=== PATIENT | male | born 1995 | race Caucasian/White ===

== ENCOUNTER 2021-03-31 13:39 | Emergency (ER) | payer OTHER ==
[~2021-03-31] VITALS: Ht 167.6 cm; Wt 97.3 kg
[2021-03-31] MEDS ORDERED: FEXO60TA71 PO (14:20)
[2021-03-31] MEDS ORDERED: MONI4CRE3 PV (14:20)
[2021-03-31] MEDS ORDERED: AUGMENTIN 875 MG TAB PO ONE (17:55)
[2021-03-31] MEDS ORDERED: AMOX875T2 PO (17:59)
[2021-03-31 18:14] VITALS: BP 135/71
== END 2021-03-31 18:15 | disposition home or self-care (01) ==
LOC: M ED 13:39
DX: J32.9 Chronic sinusitis, unspecified (principal); H66.92 Otitis media, unspecified, left ear

== ENCOUNTER 2021-04-13 23:10 | Emergency (ER) | payer OTHER ==
[~2021-04-13] VITALS: Ht 165.1 cm; Wt 95.5 kg
[~2021-04-13 23:10] MED LIST: AMOX875T2 PO; FEXO60TA98 PO; MONI4CRE3 PV
[2021-04-14] MEDS ORDERED: predniSONE 20 MG TAB PO ONE (00:50)
[2021-04-14] MEDS ORDERED: hydrOXYzine 25 MG TAB PO ONE (00:50)
[2021-04-14] MEDS ORDERED: HYDR-3363 PO (00:56)
[2021-04-14] MEDS ORDERED: PRED20TA PO (00:56)
[2021-04-14 01:22] VITALS: BP 124/81
== END 2021-04-14 01:31 | disposition home or self-care (01) ==
LOC: M ED 23:10
DX: L50.9 Urticaria, unspecified (principal)
CPT/HCPCS: 89321; 99283; J7512

== ENCOUNTER → 2021-04-14 | Outpatient (REF) | payer OTHER ==
[~2021-04-14] MED LIST changes: +HYDR-3363 PO; +PRED20TA PO
[2021-04-14 11:19] LABS: SEMEN APPEARANCE OPAQUE (OPAQUE); SEMEN VISCOSITY LIQUID (LIQUID); SEMEN VOLUME 1.2 ml (2.0-5.0); WBC CONCENTRATION <=1 M/ml (<=1 M/ml)
== END ==
LOC: M SMT 11:07
PROVIDERS: ATTEND Urology
DX: Z30.8 Encounter for other contraceptive management (principal)

== ENCOUNTER → 2022-01-16 | Outpatient (CLI) | payer OTHER ==
[2022-01-16 11:59] LABS: BASO % 0.3 % (0.0-1.0); EOS # 0.1 10^3/uL (0.0-0.5); EOS % 0.6 % (0.0-3.0); HEMATOCRIT 47.3 % (42.0-52.0); HEMOGLOBIN 15.2 g/dl (13.5-17.5); LYMPH # 1.2 10^3/uL (1.5-5.0); LYMPH % 11.7 % (24.0-44.0); MEAN CORPUSCULAR HEMOGLOBIN 26.8 pg (27.0-33.0); MEAN CORPUSCULAR HGB CONC 32.1 g/dl (32.0-36.5); MEAN CORPUSCULAR VOLUME 83.4 fl (80.0-96.0); MONO # 1.1 10^3/uL (0.0-0.8); MONO % 10.9 % (2.0-8.0); NEUTROPHILS # 7.5 10^3/uL (1.5-8.5); PLATELET COUNT, AUTOMATED 261 10^3/uL (150-450); RED BLOOD COUNT 5.67 10^6/uL (4.30-6.10); WHITE BLOOD COUNT 9.8 10^3/uL (4.0-10.0)
[2022-01-16 13:05] LABS: C REACTIVE PROTEIN QUANTITATIV 1.9 MG/DL (<1.0)
[2022-01-16 13:10] LABS: IMMUNOGLOBULIN E 57.8 IU/ML (0-378)
[2022-01-19 20:07] LABS: ASPERGILLUS FLAVUS ABY Negative (Neg:<1:1); ASPERGILLUS FUMIGATUS ABY Negative (Neg:<1:1); ASPERGILLUS NIGER ABY Negative (Neg:<1:1)
== END ==
LOC: M LAB 11:27
PROVIDERS: ATTEND Internal Medicine Critical Care Medicine
DX: J45.40 Moderate persistent asthma, uncomplicated (principal)

== ENCOUNTER 2022-07-11 10:30 | Day surgery (SDC) | payer OTHER ==
[~2022-07-11] VITALS: Ht 165.1 cm; Wt 90.7 kg
[~2022-07-11 10:30] MED LIST changes: +ALBUTEROL SULFATE 2.5MG/0.5ML INH NEB SOLN INH ONE; +BREO1INH3 INH; +FEXO-116 PO; +FLUT1BLS17 NARES; +LIDOCAINE PRES-FREE 2% 10ML AMP INH ONE; +MONT10TA97 PO
[2022-07-11] MEDS ORDERED: MIDAZOLAM INJ 2MG/2ML VIAL As Ordered ONE ×2 (10:34→11:27)
[2022-07-11] MEDS ORDERED: ONDANSETRON 4MG 2ML VIAL As Ordered ONE (10:34)
[2022-07-11] MEDS ORDERED: LIDOCAINE 2% 100MG/5ML SDV (FOR ANES.) As Ordered ONE (10:34)
[2022-07-11] MEDS ORDERED: fentaNYL 100 MCG/2 ML INJECTION As Ordered ONE (10:34)
[2022-07-11] MEDS ORDERED: propofoL 200 MG/20 ML VIAL As Ordered ONE (10:34)
[2022-07-11] MEDS ORDERED: ACETAMINOPHEN 1000MG 100ML IV BAG As Ordered ONE (10:36)
[2022-07-11] MEDS ORDERED: EPINEPHrine 1MG/10ML SYRINGE 1.5IN As Ordered ONE (10:53)
[2022-07-11] MEDS ORDERED: CETACAINE SPRAY 5GM As Ordered ONE (10:53)
[2022-07-11] MEDS ORDERED: THROMBIN 5,000 UNITS VIAL As Ordered ONE (10:53)
[2022-07-11] MEDS ORDERED: LIDOCAINE 1% SDV 30ML VIAL As Ordered ONE (11:35)
[2022-07-11] MEDS ORDERED: METOCLOPRAMIDE INJ 10MG/2ML VIAL As Ordered ONE (11:44)
[2022-07-11] MEDS ORDERED: HYDROMORPHONE HCL 0.5 MG/ 0.5 ML SYRINGE IV PRN (12:05)
[2022-07-11] MEDS ORDERED: ONDANSETRON 4MG 2ML VIAL IV PRN (12:05)
[2022-07-11] MEDS ORDERED: LR 1,000 ML IV SCH (12:05)
[2022-07-11] MEDS ORDERED: oxyCODONE 5MG TAB PO PRN (12:05)
[2022-07-11] MEDS ORDERED: fentaNYL 100 MCG/2 ML INJECTION IV PRN (12:05)
[2022-07-11 13:27] VITALS: BP 129/82; TEMP 97.3; O2SAT 96
== END 2022-07-11 13:41 | disposition home or self-care (01) ==
LOC: M SDC 10:30
PROVIDERS: ATTEND Internal Medicine Critical Care Medicine
DX: R05.3 Chronic cough (principal); J45.909 Unspecified asthma, uncomplicated; F41.9 Anxiety disorder, unspecified; F32.A Depression, unspecified; R06.83 Snoring; Z88.0 Allergy status to penicillin; Z79.899 Other long term (current) drug therapy; Z79.51 Long term (current) use of inhaled steroids
CPT/HCPCS: 31624; 87070; 87077; 87102; 87116; 87185; 87186; 87205; 87206; 88108; 88313; J0131; J1100; J2250; J2405; J2765; J3010

== ENCOUNTER → 2022-07-13 | Outpatient (CLI) | payer OTHER ==
[~2022-07-13] MED LIST changes: -ALBUTEROL SULFATE 2.5MG/0.5ML INH NEB SOLN INH ONE; -LIDOCAINE PRES-FREE 2% 10ML AMP INH ONE
== END ==
LOC: M RAD 08:50
PROVIDERS: ATTEND Internal Medicine Critical Care Medicine
DX: R91.8 Other nonspecific abnormal finding of lung field (principal)

== ENCOUNTER 2022-09-21 14:42 | Emergency (ER) | payer OTHER ==
[~2022-09-21] VITALS: Ht 165.1 cm; Wt 92.0 kg
[2022-09-21 20:34] VITALS: BP 146/82; TEMP 97.7; O2SAT 99
[2022-09-22 12:45] LABS: GC DNA AMPLIFICATION NEGATIVE (NEGATIVE)
== END 2022-09-21 20:36 | disposition home or self-care (01) ==
LOC: M ED 14:42
DX: N50.812 Left testicular pain (principal); N50.3 Cyst of epididymis; Z88.0 Allergy status to penicillin; Z79.899 Other long term (current) drug therapy

== ENCOUNTER → 2022-10-03 | Outpatient (REF) | payer OTHER | LOC: M LAB REF 13:39 | PROVIDERS: ATTEND Internal Medicine Critical Care Medicine | DX: J15.8 Pneumonia due to other specified bacteria (principal) ==